=== PATIENT | male | born 1965 | race Caucasian/White ===

== ENCOUNTER → 2020-05-13 | Outpatient (CLI) | payer OTHER | LOC: WCC 14:37 | PROC: 0JBR0ZZ Excision of Left Foot Subcutaneous Tissue and Fascia, Open Approach (ICD-10-PCS; principal; 2020-05-13) | PROC: 0JBQ0ZZ Excision of Right Foot Subcutaneous Tissue and Fascia, Open Approach (ICD-10-PCS; 2020-05-13) | DX: I96 Gangrene, not elsewhere classified (principal); L89.613 Pressure ulcer of right heel, stage 3; L89.623 Pressure ulcer of left heel, stage 3; I87.312 Chronic venous hypertension (idiopathic) with ulcer of left lower extremity; L97.829 Non-pressure chronic ulcer of other part of left lower leg with unspecified severity; I10 Essential (primary) hypertension; E66.01 Morbid (severe) obesity due to excess calories; G95.11 Acute infarction of spinal cord (embolic) (nonembolic); J44.9 Chronic obstructive pulmonary disease, unspecified; G47.30 Sleep apnea, unspecified; Z88.1 Allergy status to other antibiotic agents; Z88.2 Allergy status to sulfonamides; Z88.8 Allergy status to other drugs, medicaments and biological substances; Z79.899 Other long term (current) drug therapy; Z87.891 Personal history of nicotine dependence; Z68.43 Body mass index [BMI] 50.0-59.9, adult ==

== ENCOUNTER → 2020-05-20 | Outpatient (CLI) | payer OTHER | LOC: WCC 15:00 | PROC: 0JBR0ZZ Excision of Left Foot Subcutaneous Tissue and Fascia, Open Approach (ICD-10-PCS; principal; 2020-05-20) | PROC: 0JBQ0ZZ Excision of Right Foot Subcutaneous Tissue and Fascia, Open Approach (ICD-10-PCS; 2020-05-20) | DX: I96 Gangrene, not elsewhere classified (principal); L89.623 Pressure ulcer of left heel, stage 3; L89.613 Pressure ulcer of right heel, stage 3; I87.312 Chronic venous hypertension (idiopathic) with ulcer of left lower extremity; L97.429 Non-pressure chronic ulcer of left heel and midfoot with unspecified severity; I10 Essential (primary) hypertension; J44.9 Chronic obstructive pulmonary disease, unspecified; G47.30 Sleep apnea, unspecified; G95.11 Acute infarction of spinal cord (embolic) (nonembolic); D64.9 Anemia, unspecified; M19.90 Unspecified osteoarthritis, unspecified site; E66.01 Morbid (severe) obesity due to excess calories; Z68.43 Body mass index [BMI] 50.0-59.9, adult; Z79.899 Other long term (current) drug therapy; Z88.2 Allergy status to sulfonamides; Z88.8 Allergy status to other drugs, medicaments and biological substances; Z88.1 Allergy status to other antibiotic agents ==

== ENCOUNTER → 2020-05-27 | Outpatient (CLI) | payer OTHER | LOC: WCC 14:47 | PROC: 0KBV0ZZ Excision of Right Foot Muscle, Open Approach (ICD-10-PCS; principal; 2020-05-27) | DX: I96 Gangrene, not elsewhere classified (principal); L89.613 Pressure ulcer of right heel, stage 3; L89.623 Pressure ulcer of left heel, stage 3; I87.312 Chronic venous hypertension (idiopathic) with ulcer of left lower extremity; E66.01 Morbid (severe) obesity due to excess calories; I10 Essential (primary) hypertension; G95.11 Acute infarction of spinal cord (embolic) (nonembolic); J44.9 Chronic obstructive pulmonary disease, unspecified; G47.30 Sleep apnea, unspecified; D64.9 Anemia, unspecified; M19.90 Unspecified osteoarthritis, unspecified site; Z68.43 Body mass index [BMI] 50.0-59.9, adult; Z88.1 Allergy status to other antibiotic agents; Z88.2 Allergy status to sulfonamides; Z88.8 Allergy status to other drugs, medicaments and biological substances; Z79.899 Other long term (current) drug therapy | CPT/HCPCS: 87070; 87077; 87186; 87205 ==

== ENCOUNTER → 2020-07-22 | Outpatient (CLI) | payer OTHER | LOC: WCC 13:00 | DX: I87.312 Chronic venous hypertension (idiopathic) with ulcer of left lower extremity (principal); L89.892 Pressure ulcer of other site, stage 2; L89.893 Pressure ulcer of other site, stage 3; I10 Essential (primary) hypertension; I73.9 Peripheral vascular disease, unspecified; E66.01 Morbid (severe) obesity due to excess calories; G95.11 Acute infarction of spinal cord (embolic) (nonembolic); J44.9 Chronic obstructive pulmonary disease, unspecified; G47.30 Sleep apnea, unspecified; R60.1 Generalized edema; Z68.43 Body mass index [BMI] 50.0-59.9, adult; Z88.2 Allergy status to sulfonamides; Z88.5 Allergy status to narcotic agent; Z88.1 Allergy status to other antibiotic agents | CPT/HCPCS: 87070; 87077; 87186; 87205 ==

== ENCOUNTER → 2020-07-29 | Outpatient (CLI) | payer OTHER | LOC: WCC 15:23 | DX: I87.312 Chronic venous hypertension (idiopathic) with ulcer of left lower extremity (principal); L89.893 Pressure ulcer of other site, stage 3; L89.892 Pressure ulcer of other site, stage 2; I10 Essential (primary) hypertension; I73.9 Peripheral vascular disease, unspecified; E66.01 Morbid (severe) obesity due to excess calories; G95.11 Acute infarction of spinal cord (embolic) (nonembolic); J44.9 Chronic obstructive pulmonary disease, unspecified; G47.30 Sleep apnea, unspecified; R60.1 Generalized edema; B96.29 Other Escherichia coli [E. coli] as the cause of diseases classified elsewhere; Z68.43 Body mass index [BMI] 50.0-59.9, adult; Z88.2 Allergy status to sulfonamides; Z88.5 Allergy status to narcotic agent; Z88.1 Allergy status to other antibiotic agents; Z79.899 Other long term (current) drug therapy ==

== ENCOUNTER → 2020-07-31 | Outpatient (CLI) | payer OTHER ==
[~2020-07-31] VITALS: Ht 182.9 cm; Wt 181.4 kg
[2020-07-31 09:40] LABS: HEMOGLOBIN 13.5 gm/dl (14.0-17.5); RED BLOOD COUNT 4.87 M/UL (4.20-5.50); WHITE BLOOD COUNT 10.3 K/UL (4.5-11.0)
--- NOTE | 2020-07-31 09:48 | NUR ---
Single lumen picc line placed in the left basilic vein, uncut at 55cm. 3CG technology used to confirm picc tip in SVC. Aspirates and flushes well. Upper arm circ = 37cm, lower arm circ = 34.5 cm. No complications.
[2020-07-31 09:59] LABS: BUN/CREATININE RATIO 23 (0-10)
== END ==
LOC: OPSV 07:55
PROVIDERS: Nurse Practitioner Family
DX: M86.8X7 Other osteomyelitis, ankle and foot (principal); B96.29 Other Escherichia coli [E. coli] as the cause of diseases classified elsewhere; Z88.2 Allergy status to sulfonamides; Z88.5 Allergy status to narcotic agent; Z88.1 Allergy status to other antibiotic agents
CPT/HCPCS: 80053; 83036; 85025; 85652; 86140; 96365; C1751; J1335

== ENCOUNTER → 2020-08-12 | Outpatient (CLI) | payer OTHER | LOC: WCC 15:15 | DX: I87.312 Chronic venous hypertension (idiopathic) with ulcer of left lower extremity (principal); L89.622 Pressure ulcer of left heel, stage 2; L89.613 Pressure ulcer of right heel, stage 3; L89.899 Pressure ulcer of other site, unspecified stage; I10 Essential (primary) hypertension; I73.9 Peripheral vascular disease, unspecified; E66.01 Morbid (severe) obesity due to excess calories; G95.11 Acute infarction of spinal cord (embolic) (nonembolic); J44.9 Chronic obstructive pulmonary disease, unspecified; G47.30 Sleep apnea, unspecified; R60.1 Generalized edema; B96.29 Other Escherichia coli [E. coli] as the cause of diseases classified elsewhere; Z68.43 Body mass index [BMI] 50.0-59.9, adult; Z88.2 Allergy status to sulfonamides; Z88.5 Allergy status to narcotic agent; Z88.1 Allergy status to other antibiotic agents; Z79.899 Other long term (current) drug therapy ==

== ENCOUNTER → 2020-08-19 | Outpatient (CLI) | payer OTHER | LOC: WCC 15:30 | DX: L89.613 Pressure ulcer of right heel, stage 3 (principal); L89.622 Pressure ulcer of left heel, stage 2; L89.892 Pressure ulcer of other site, stage 2; I87.312 Chronic venous hypertension (idiopathic) with ulcer of left lower extremity; I10 Essential (primary) hypertension; I73.9 Peripheral vascular disease, unspecified; E66.01 Morbid (severe) obesity due to excess calories; G95.11 Acute infarction of spinal cord (embolic) (nonembolic); J44.9 Chronic obstructive pulmonary disease, unspecified; G47.30 Sleep apnea, unspecified; R60.1 Generalized edema; B96.29 Other Escherichia coli [E. coli] as the cause of diseases classified elsewhere; Z68.43 Body mass index [BMI] 50.0-59.9, adult; Z88.2 Allergy status to sulfonamides; Z88.5 Allergy status to narcotic agent; Z88.1 Allergy status to other antibiotic agents; Z79.899 Other long term (current) drug therapy | CPT/HCPCS: 97597 ==

== ENCOUNTER → 2020-08-26 | Outpatient (CLI) | payer OTHER | LOC: WCC 15:15 | PROC: 0KBV0ZZ Excision of Right Foot Muscle, Open Approach (ICD-10-PCS; principal; 2020-08-26) | DX: I96 Gangrene, not elsewhere classified (principal); L89.613 Pressure ulcer of right heel, stage 3; L89.622 Pressure ulcer of left heel, stage 2; I87.312 Chronic venous hypertension (idiopathic) with ulcer of left lower extremity; L97.422 Non-pressure chronic ulcer of left heel and midfoot with fat layer exposed; J44.9 Chronic obstructive pulmonary disease, unspecified; G47.30 Sleep apnea, unspecified; B96.20 Unspecified Escherichia coli [E. coli] as the cause of diseases classified elsewhere; I10 Essential (primary) hypertension; G95.11 Acute infarction of spinal cord (embolic) (nonembolic); B96.29 Other Escherichia coli [E. coli] as the cause of diseases classified elsewhere; M19.90 Unspecified osteoarthritis, unspecified site; E66.01 Morbid (severe) obesity due to excess calories; Z68.43 Body mass index [BMI] 50.0-59.9, adult; Z79.899 Other long term (current) drug therapy; Z88.2 Allergy status to sulfonamides; Z88.1 Allergy status to other antibiotic agents; Z88.8 Allergy status to other drugs, medicaments and biological substances ==

== ENCOUNTER → 2020-09-03 | Outpatient (CLI) | payer OTHER | LOC: WCC 15:17 | PROC: 0JBR0ZZ Excision of Left Foot Subcutaneous Tissue and Fascia, Open Approach (ICD-10-PCS; principal; 2020-09-03) | PROC: 0JBQ0ZZ Excision of Right Foot Subcutaneous Tissue and Fascia, Open Approach (ICD-10-PCS; 2020-09-03) | DX: I96 Gangrene, not elsewhere classified (principal); L89.613 Pressure ulcer of right heel, stage 3; L89.622 Pressure ulcer of left heel, stage 2; L89.892 Pressure ulcer of other site, stage 2; I87.312 Chronic venous hypertension (idiopathic) with ulcer of left lower extremity; L97.829 Non-pressure chronic ulcer of other part of left lower leg with unspecified severity; I10 Essential (primary) hypertension; J44.9 Chronic obstructive pulmonary disease, unspecified; G47.30 Sleep apnea, unspecified; B96.29 Other Escherichia coli [E. coli] as the cause of diseases classified elsewhere; D64.9 Anemia, unspecified; M19.90 Unspecified osteoarthritis, unspecified site; G95.11 Acute infarction of spinal cord (embolic) (nonembolic); E66.01 Morbid (severe) obesity due to excess calories; Z68.43 Body mass index [BMI] 50.0-59.9, adult; Z79.2 Long term (current) use of antibiotics; Z79.899 Other long term (current) drug therapy; Z88.1 Allergy status to other antibiotic agents; Z88.2 Allergy status to sulfonamides; Z88.8 Allergy status to other drugs, medicaments and biological substances | CPT/HCPCS: J1335 ==

== ENCOUNTER → 2020-09-10 | Outpatient (CLI) | payer OTHER | LOC: WCC 15:00 | DX: I87.312 Chronic venous hypertension (idiopathic) with ulcer of left lower extremity (principal); L89.622 Pressure ulcer of left heel, stage 2; L89.613 Pressure ulcer of right heel, stage 3; L89.892 Pressure ulcer of other site, stage 2; I10 Essential (primary) hypertension; I73.9 Peripheral vascular disease, unspecified; E66.01 Morbid (severe) obesity due to excess calories; G95.11 Acute infarction of spinal cord (embolic) (nonembolic); J44.9 Chronic obstructive pulmonary disease, unspecified; G47.30 Sleep apnea, unspecified; R60.1 Generalized edema; B96.29 Other Escherichia coli [E. coli] as the cause of diseases classified elsewhere; Z68.43 Body mass index [BMI] 50.0-59.9, adult; Z88.2 Allergy status to sulfonamides; Z88.5 Allergy status to narcotic agent; Z88.1 Allergy status to other antibiotic agents; Z79.2 Long term (current) use of antibiotics; Z79.899 Other long term (current) drug therapy ==

== ENCOUNTER → 2020-09-24 | Outpatient (CLI) | payer OTHER | LOC: WCC 11:36 | DX: I87.312 Chronic venous hypertension (idiopathic) with ulcer of left lower extremity (principal); L89.622 Pressure ulcer of left heel, stage 2; L89.613 Pressure ulcer of right heel, stage 3; L89.892 Pressure ulcer of other site, stage 2; I10 Essential (primary) hypertension; I73.9 Peripheral vascular disease, unspecified; E66.01 Morbid (severe) obesity due to excess calories; G95.11 Acute infarction of spinal cord (embolic) (nonembolic); J44.9 Chronic obstructive pulmonary disease, unspecified; G47.30 Sleep apnea, unspecified; R60.1 Generalized edema; B96.29 Other Escherichia coli [E. coli] as the cause of diseases classified elsewhere; Z68.43 Body mass index [BMI] 50.0-59.9, adult; Z88.2 Allergy status to sulfonamides; Z88.5 Allergy status to narcotic agent; Z88.1 Allergy status to other antibiotic agents; Z79.2 Long term (current) use of antibiotics; Z79.899 Other long term (current) drug therapy ==

== ENCOUNTER → 2020-10-01 | Outpatient (CLI) | payer OTHER | LOC: WCC 14:47 | DX: L89.622 Pressure ulcer of left heel, stage 2 (principal); L89.613 Pressure ulcer of right heel, stage 3; I10 Essential (primary) hypertension; I73.9 Peripheral vascular disease, unspecified; E66.01 Morbid (severe) obesity due to excess calories; J44.9 Chronic obstructive pulmonary disease, unspecified; G47.30 Sleep apnea, unspecified; R60.1 Generalized edema; B96.29 Other Escherichia coli [E. coli] as the cause of diseases classified elsewhere; G95.11 Acute infarction of spinal cord (embolic) (nonembolic); Z88.2 Allergy status to sulfonamides; Z88.1 Allergy status to other antibiotic agents; Z68.43 Body mass index [BMI] 50.0-59.9, adult ==

== ENCOUNTER → 2020-10-08 | Outpatient (CLI) | payer OTHER | LOC: WCC 15:00 | DX: I87.312 Chronic venous hypertension (idiopathic) with ulcer of left lower extremity (principal); L97.829 Non-pressure chronic ulcer of other part of left lower leg with unspecified severity; L89.613 Pressure ulcer of right heel, stage 3; L89.622 Pressure ulcer of left heel, stage 2; I73.9 Peripheral vascular disease, unspecified; I10 Essential (primary) hypertension; J44.9 Chronic obstructive pulmonary disease, unspecified; B96.29 Other Escherichia coli [E. coli] as the cause of diseases classified elsewhere; G47.30 Sleep apnea, unspecified; E66.01 Morbid (severe) obesity due to excess calories; Z79.899 Other long term (current) drug therapy; Z79.890 Hormone replacement therapy; Z79.2 Long term (current) use of antibiotics; Z86.69 Personal history of other diseases of the nervous system and sense organs; Z88.2 Allergy status to sulfonamides; Z88.1 Allergy status to other antibiotic agents; Z88.8 Allergy status to other drugs, medicaments and biological substances ==

== ENCOUNTER → 2020-10-22 | Outpatient (CLI) | payer OTHER | END | disposition home or self-care (01) | LOC: WCC 15:30 | PROC: 0JBR0ZZ Excision of Left Foot Subcutaneous Tissue and Fascia, Open Approach (ICD-10-PCS; principal; 2020-10-22) | PROC: 0JBQ0ZZ Excision of Right Foot Subcutaneous Tissue and Fascia, Open Approach (ICD-10-PCS; 2020-10-22) | DX: I87.312 Chronic venous hypertension (idiopathic) with ulcer of left lower extremity (principal); L89.613 Pressure ulcer of right heel, stage 3; L89.622 Pressure ulcer of left heel, stage 2; L89.892 Pressure ulcer of other site, stage 2; I10 Essential (primary) hypertension; I73.9 Peripheral vascular disease, unspecified; G47.30 Sleep apnea, unspecified; J44.9 Chronic obstructive pulmonary disease, unspecified; B96.29 Other Escherichia coli [E. coli] as the cause of diseases classified elsewhere; M19.90 Unspecified osteoarthritis, unspecified site; E66.01 Morbid (severe) obesity due to excess calories; Z68.43 Body mass index [BMI] 50.0-59.9, adult; Z79.2 Long term (current) use of antibiotics; Z79.899 Other long term (current) drug therapy; Z88.1 Allergy status to other antibiotic agents; Z88.2 Allergy status to sulfonamides; Z88.5 Allergy status to narcotic agent ==

== ENCOUNTER → 2020-11-05 | Outpatient (CLI) | payer OTHER | LOC: WCC 15:00 | DX: I87.312 Chronic venous hypertension (idiopathic) with ulcer of left lower extremity (principal); L89.892 Pressure ulcer of other site, stage 2; L89.893 Pressure ulcer of other site, stage 3; I10 Essential (primary) hypertension; I73.9 Peripheral vascular disease, unspecified; E66.01 Morbid (severe) obesity due to excess calories; G95.11 Acute infarction of spinal cord (embolic) (nonembolic); J44.9 Chronic obstructive pulmonary disease, unspecified; G47.30 Sleep apnea, unspecified; R60.1 Generalized edema; B96.29 Other Escherichia coli [E. coli] as the cause of diseases classified elsewhere; Z68.43 Body mass index [BMI] 50.0-59.9, adult; Z88.2 Allergy status to sulfonamides; Z88.1 Allergy status to other antibiotic agents; Z88.5 Allergy status to narcotic agent; Z79.899 Other long term (current) drug therapy ==

== ENCOUNTER → 2020-11-26 | Outpatient (CLI) | payer OTHER | LOC: WCC 14:30 | DX: L89.613 Pressure ulcer of right heel, stage 3 (principal); L89.622 Pressure ulcer of left heel, stage 2; I10 Essential (primary) hypertension; I73.9 Peripheral vascular disease, unspecified; E66.01 Morbid (severe) obesity due to excess calories; G95.11 Acute infarction of spinal cord (embolic) (nonembolic); J44.9 Chronic obstructive pulmonary disease, unspecified; G47.30 Sleep apnea, unspecified; R60.1 Generalized edema; Z88.2 Allergy status to sulfonamides; Z88.1 Allergy status to other antibiotic agents ==

== ENCOUNTER → 2020-12-17 | Outpatient (CLI) | payer OTHER | LOC: WCC 13:37 | DX: L89.622 Pressure ulcer of left heel, stage 2 (principal); L89.613 Pressure ulcer of right heel, stage 3; Z68.43 Body mass index [BMI] 50.0-59.9, adult; I87.2 Venous insufficiency (chronic) (peripheral); I10 Essential (primary) hypertension; I73.9 Peripheral vascular disease, unspecified; E66.01 Morbid (severe) obesity due to excess calories; G95.11 Acute infarction of spinal cord (embolic) (nonembolic); J44.9 Chronic obstructive pulmonary disease, unspecified; G47.30 Sleep apnea, unspecified; R60.1 Generalized edema; Z88.2 Allergy status to sulfonamides; Z88.1 Allergy status to other antibiotic agents; Z88.5 Allergy status to narcotic agent ==

== ENCOUNTER → 2020-12-31 | Outpatient (CLI) | payer OTHER | END | disposition home or self-care (01) | LOC: WCC 12:06 | PROC: 0JBR0ZZ Excision of Left Foot Subcutaneous Tissue and Fascia, Open Approach (ICD-10-PCS; principal; 2020-12-31) | PROC: 0JBQ0ZZ Excision of Right Foot Subcutaneous Tissue and Fascia, Open Approach (ICD-10-PCS; 2020-12-31) | DX: L89.613 Pressure ulcer of right heel, stage 3 (principal); L89.622 Pressure ulcer of left heel, stage 2; I73.9 Peripheral vascular disease, unspecified; I10 Essential (primary) hypertension; G95.11 Acute infarction of spinal cord (embolic) (nonembolic); J44.9 Chronic obstructive pulmonary disease, unspecified; G47.30 Sleep apnea, unspecified; M19.90 Unspecified osteoarthritis, unspecified site; E66.01 Morbid (severe) obesity due to excess calories; Z68.43 Body mass index [BMI] 50.0-59.9, adult; Z88.1 Allergy status to other antibiotic agents; Z88.2 Allergy status to sulfonamides; Z88.5 Allergy status to narcotic agent; Z79.899 Other long term (current) drug therapy | CPT/HCPCS: 87070; 87077; 87186; 87205 ==

== ENCOUNTER → 2021-01-14 | Outpatient (CLI) | payer OTHER | LOC: WCC 12:52 | DX: L89.613 Pressure ulcer of right heel, stage 3 (principal); L89.622 Pressure ulcer of left heel, stage 2; E66.01 Morbid (severe) obesity due to excess calories; Z68.43 Body mass index [BMI] 50.0-59.9, adult; I10 Essential (primary) hypertension; G95.11 Acute infarction of spinal cord (embolic) (nonembolic); J44.9 Chronic obstructive pulmonary disease, unspecified; G47.30 Sleep apnea, unspecified; R60.1 Generalized edema; I73.9 Peripheral vascular disease, unspecified; Z88.2 Allergy status to sulfonamides; Z88.1 Allergy status to other antibiotic agents ==

== ENCOUNTER → 2021-02-04 | Outpatient (CLI) | payer OTHER | LOC: WCC 08:21 | DX: L89.613 Pressure ulcer of right heel, stage 3 (principal); L89.622 Pressure ulcer of left heel, stage 2; I10 Essential (primary) hypertension; I73.9 Peripheral vascular disease, unspecified; E66.01 Morbid (severe) obesity due to excess calories; G95.11 Acute infarction of spinal cord (embolic) (nonembolic); J44.9 Chronic obstructive pulmonary disease, unspecified; G47.30 Sleep apnea, unspecified; R60.1 Generalized edema; Z68.43 Body mass index [BMI] 50.0-59.9, adult; Z88.2 Allergy status to sulfonamides; Z88.5 Allergy status to narcotic agent; Z88.1 Allergy status to other antibiotic agents; Z79.899 Other long term (current) drug therapy ==

== ENCOUNTER → 2021-03-04 | Outpatient (CLI) | payer OTHER | LOC: WCC 09:18 | DX: L89.622 Pressure ulcer of left heel, stage 2 (principal); L89.613 Pressure ulcer of right heel, stage 3; I87.2 Venous insufficiency (chronic) (peripheral); I10 Essential (primary) hypertension; Z68.43 Body mass index [BMI] 50.0-59.9, adult; I73.9 Peripheral vascular disease, unspecified; E66.01 Morbid (severe) obesity due to excess calories; J44.9 Chronic obstructive pulmonary disease, unspecified; G47.30 Sleep apnea, unspecified; R60.1 Generalized edema; Z88.1 Allergy status to other antibiotic agents; Z88.8 Allergy status to other drugs, medicaments and biological substances; Z88.2 Allergy status to sulfonamides ==

== ENCOUNTER → 2021-04-22 | Outpatient (CLI) | payer OTHER | LOC: WCC 12:47 | DX: L89.613 Pressure ulcer of right heel, stage 3 (principal); L89.622 Pressure ulcer of left heel, stage 2; I10 Essential (primary) hypertension; I73.9 Peripheral vascular disease, unspecified; E66.01 Morbid (severe) obesity due to excess calories; G95.11 Acute infarction of spinal cord (embolic) (nonembolic); J44.9 Chronic obstructive pulmonary disease, unspecified; G47.30 Sleep apnea, unspecified; R60.1 Generalized edema; J45.909 Unspecified asthma, uncomplicated; Z88.2 Allergy status to sulfonamides; Z88.6 Allergy status to analgesic agent; Z88.1 Allergy status to other antibiotic agents ==

== ENCOUNTER → 2021-05-05 | Outpatient (CLI) | payer OTHER | LOC: US 15:00 | DX: R60.1 Generalized edema (principal) | CPT/HCPCS: 93971 ==

== ENCOUNTER → 2021-05-20 | Outpatient (CLI) | payer OTHER | LOC: WCC 08:41 | DX: L89.613 Pressure ulcer of right heel, stage 3 (principal); L89.622 Pressure ulcer of left heel, stage 2; I10 Essential (primary) hypertension; I73.9 Peripheral vascular disease, unspecified; E66.01 Morbid (severe) obesity due to excess calories; G95.11 Acute infarction of spinal cord (embolic) (nonembolic); J44.9 Chronic obstructive pulmonary disease, unspecified; G47.30 Sleep apnea, unspecified; R60.1 Generalized edema; J45.909 Unspecified asthma, uncomplicated; D64.9 Anemia, unspecified; Z88.1 Allergy status to other antibiotic agents; Z88.5 Allergy status to narcotic agent; Z88.2 Allergy status to sulfonamides ==

== ENCOUNTER → 2021-06-24 | Outpatient (CLI) | payer OTHER | END | disposition home or self-care (01) | LOC: WCC 08:30 | DX: L89.613 Pressure ulcer of right heel, stage 3 (principal); L89.622 Pressure ulcer of left heel, stage 2; I10 Essential (primary) hypertension; I73.9 Peripheral vascular disease, unspecified; G95.11 Acute infarction of spinal cord (embolic) (nonembolic); J44.9 Chronic obstructive pulmonary disease, unspecified; R60.1 Generalized edema; G47.30 Sleep apnea, unspecified; E66.01 Morbid (severe) obesity due to excess calories; Z79.899 Other long term (current) drug therapy; Z68.43 Body mass index [BMI] 50.0-59.9, adult ==

== ENCOUNTER → 2021-07-15 | Outpatient (CLI) | payer OTHER | LOC: WCC 07:25 | DX: I89.0 Lymphedema, not elsewhere classified (principal); L89.613 Pressure ulcer of right heel, stage 3; L89.622 Pressure ulcer of left heel, stage 2; I10 Essential (primary) hypertension; I73.9 Peripheral vascular disease, unspecified; E66.01 Morbid (severe) obesity due to excess calories; G95.11 Acute infarction of spinal cord (embolic) (nonembolic); J44.9 Chronic obstructive pulmonary disease, unspecified; G47.30 Sleep apnea, unspecified; R60.1 Generalized edema; Z68.43 Body mass index [BMI] 50.0-59.9, adult ==

== ENCOUNTER → 2021-08-19 | Outpatient (CLI) | payer OTHER | LOC: WCC 08:53 | DX: L89.613 Pressure ulcer of right heel, stage 3 (principal); L89.622 Pressure ulcer of left heel, stage 2; I10 Essential (primary) hypertension; I73.9 Peripheral vascular disease, unspecified; E66.01 Morbid (severe) obesity due to excess calories; G95.11 Acute infarction of spinal cord (embolic) (nonembolic); J44.9 Chronic obstructive pulmonary disease, unspecified; G47.30 Sleep apnea, unspecified; R60.1 Generalized edema; Z68.43 Body mass index [BMI] 50.0-59.9, adult; Z88.2 Allergy status to sulfonamides; Z88.5 Allergy status to narcotic agent; Z88.1 Allergy status to other antibiotic agents; Z79.899 Other long term (current) drug therapy ==

== ENCOUNTER → 2021-09-09 | Outpatient (CLI) | payer OTHER | LOC: WCC 08:34 | DX: L89.613 Pressure ulcer of right heel, stage 3 (principal); L89.622 Pressure ulcer of left heel, stage 2; I10 Essential (primary) hypertension; I73.9 Peripheral vascular disease, unspecified; E66.01 Morbid (severe) obesity due to excess calories; G95.11 Acute infarction of spinal cord (embolic) (nonembolic); J44.9 Chronic obstructive pulmonary disease, unspecified; G47.30 Sleep apnea, unspecified; R60.1 Generalized edema; Z68.43 Body mass index [BMI] 50.0-59.9, adult; Z88.2 Allergy status to sulfonamides; Z88.1 Allergy status to other antibiotic agents; Z88.5 Allergy status to narcotic agent; Z79.899 Other long term (current) drug therapy ==

== ENCOUNTER → 2021-09-30 | Outpatient (CLI) | payer OTHER | LOC: WCC 07:25 | DX: L89.622 Pressure ulcer of left heel, stage 2 (principal); L89.613 Pressure ulcer of right heel, stage 3; I10 Essential (primary) hypertension; I73.9 Peripheral vascular disease, unspecified; E66.01 Morbid (severe) obesity due to excess calories; G95.11 Acute infarction of spinal cord (embolic) (nonembolic); J44.9 Chronic obstructive pulmonary disease, unspecified; G47.30 Sleep apnea, unspecified; R60.1 Generalized edema; Z88.1 Allergy status to other antibiotic agents; Z88.2 Allergy status to sulfonamides; Z88.8 Allergy status to other drugs, medicaments and biological substances ==

== ENCOUNTER → 2021-10-28 | Outpatient (CLI) | payer OTHER | END | disposition home or self-care (01) | LOC: WCC 08:31 | DX: L89.613 Pressure ulcer of right heel, stage 3 (principal); L89.622 Pressure ulcer of left heel, stage 2; I10 Essential (primary) hypertension; I73.9 Peripheral vascular disease, unspecified; G95.11 Acute infarction of spinal cord (embolic) (nonembolic); J44.9 Chronic obstructive pulmonary disease, unspecified; G47.30 Sleep apnea, unspecified; R60.1 Generalized edema; E66.01 Morbid (severe) obesity due to excess calories; Z68.43 Body mass index [BMI] 50.0-59.9, adult; Z79.899 Other long term (current) drug therapy ==

== ENCOUNTER → 2021-11-18 | Outpatient (CLI) | payer OTHER | LOC: WCC 08:03 | DX: L89.613 Pressure ulcer of right heel, stage 3 (principal); L89.622 Pressure ulcer of left heel, stage 2; I10 Essential (primary) hypertension; I73.9 Peripheral vascular disease, unspecified; E66.01 Morbid (severe) obesity due to excess calories; G95.11 Acute infarction of spinal cord (embolic) (nonembolic); J44.9 Chronic obstructive pulmonary disease, unspecified; G47.30 Sleep apnea, unspecified; R60.1 Generalized edema; Z88.1 Allergy status to other antibiotic agents; Z88.2 Allergy status to sulfonamides; Z88.8 Allergy status to other drugs, medicaments and biological substances ==